=== PATIENT | female | born 1965 | race Caucasian/White ===

== ENCOUNTER → 2017-02-14 | Outpatient (CLI) | payer OTHER ==
[~2017-02-14] MED LIST: CALC500C3 PO; DIAZ-165 PO; HYDR-5688 PO; MEDR150I; TRAM-10 PO
--- NOTE | 2017-02-14 14:21 | DIAGNOSTIC IMAGING REPORT ---
LUMBAR SPINE 5 VIEWS HISTORY: BILATERAL LEG PAIN COMPARISON: None. FINDINGS: There is no fracture. No subluxation. Disc spaces are preserved for age. The sacrum is intact. IMPRESSION: No significant abnormality within the lumbar spine by conventional radiographic technique. Electronically signed by: Ajay Gordon M.D. 02/14/2017 2:20 PM Dictated Date/Time: 02/14/2017 2:14 PM
== END | disposition home or self-care (01) ==
LOC: C.RDSM 14:05
PROVIDERS: ATTEND Family Medicine
DX: M79.604 Pain in right leg (principal)

== ENCOUNTER → 2017-03-29 | Outpatient (CLI) | payer OTHER ==
--- NOTE | 2017-03-28 14:42 | DIAGNOSTIC IMAGING REPORT ---
LEFT ANKLE 3 VIEWS CLINICAL HISTORY: Left ankle pain. Tarsal tunnel syndrome. FINDINGS: 3 views of left ankle are obtained. No prior studies are available for comparison at the time of dictation. The skeletal structures appear osteopenic. No fracture is seen. The ankle mortise is intact. No joint effusion is identified. The overlying soft tissues are within normal limits. IMPRESSION: No acute bony abnormality is seen in the left ankle. Electronically signed by: Skyler Lacey M.D. 03/28/2017 2:41 PM Dictated Date/Time: 03/28/2017 2:40 PM
--- NOTE | 2017-03-28 14:43 | DIAGNOSTIC IMAGING REPORT ---
RIGHT ANKLE 3 VIEWS CLINICAL HISTORY: Right ankle pain. Tarsal tunnel syndrome. FINDINGS: 3 views of right ankle are obtained. No prior studies are available for comparison at the time of dictation. The skeletal structures appear osteopenic. No fracture is seen. The ankle mortise is intact. No joint effusion is identified. The overlying soft tissues are within normal limits. IMPRESSION: No acute bony abnormality is seen in the right ankle. Electronically signed by: Skyler Lacey M.D. 03/28/2017 2:42 PM Dictated Date/Time: 03/28/2017 2:41 PM
[~2017-03-29] MED LIST changes: -HYDR-5688 PO
== END | disposition home or self-care (01) ==
LOC: C.RDSM 13:15
PROVIDERS: ATTEND Family Medicine
DX: G57.53 Tarsal tunnel syndrome, bilateral lower limbs (principal)

== ENCOUNTER → 2017-08-26 | Day surgery (SDC) | payer OTHER ==
[2017-08-02 15:11] LABS: BASO % 0.3 %; BASO ABS # 0.02 K/uL (0-0.2); COMPLETE YES; EOS % 1.4 %; HEMATOCRIT 43.1 % (37-47); IG% 0.1 %; LYMPH % 32.6 %; LYMPH ABS # 2.48 K/uL (1.2-3.4); MEAN CELL VOLUME 89.4 fL (80-100); MEAN CORPUSCULAR HEMOGLOBIN 30.1 pg (25-34); MEAN CORPUSCULAR HGB CONC 33.6 g/dl (32-36); MEAN PLATELET VOLUME 8.5 fL (7.4-10.4); MONO % 6.3 %; NEUT % 59.3 %; PLATELET COUNT 246 K/uL (130-400); RED BLOOD COUNT 4.82 M/uL (4.2-5.4)
--- NOTE | 2017-08-02 15:19 | DIAGNOSTIC IMAGING REPORT ---
CHEST 2 VIEWS ROUTINE HISTORY: 52 years-old Female PRE-OP Z01.818 preoperative study. History of tobacco abuse. No acute pulmonary complaints. COMPARISON: Chest radiograph 10/05/2015 TECHNIQUE: Frontal and lateral views of the chest FINDINGS: Cardiomediastinal and hilar silhouettes are within normal limits. No pneumothorax, pleural effusion or focal airspace consolidation. There is mild blunting of the posterior costophrenic angles, unchanged suggesting atelectasis or scarring. Lungs are mildly hyperinflated. Bones are grossly intact. IMPRESSION: No acute cardiopulmonary process. The above report was generated using voice recognition software. It may contain grammatical, syntax or spelling errors. Electronically signed by: Santiago Mendez M.D. 08/02/2017 3:18 PM Dictated Date/Time: 08/02/2017 3:15 PM
[2017-08-02 15:28] LABS: BLOOD UREA NITROGEN 16 mg/dl (7-18); BUN/CREATININE RATIO 21.9 (10-20); CALCIUM 8.9 mg/dl (8.5-10.1); CARBON DIOXIDE 28 mmol/L (21-32); CHLORIDE 106 mmol/L (98-107); CREATININE 0.73 mg/dl (0.60-1.20); GLUCOSE 89 mg/dl (70-99); SODIUM 140 mmol/L (136-145)
[2017-08-25 11:10] VITALS: Ht 165.1 cm; Wt 52.3 kg
[~2017-08-26] VITALS: Ht 165.1 cm; Wt 52.3 kg
[~2017-08-26] MED LIST changes: +ATROPINE SULFATE 0.1 MG/ML 5ML SYR IV PRN; +BUPIVACAINE 0.5 % 5 MG/1 ML MPF 30ML VIAL ONE; +CLINDAMYCIN PHOS 150 MG/ML 2 ML VIAL IV SCH; +DEXAMETHASONE SOD INJ 4 MG/ML VIAL ONE; +EpHEDrine SULFATE INJ 50 MG/ML AMP IV PRN; +FENTANYL CITRATE INJ 50 MCG/1 ML 2 ML VIAL ONE; +FLUMAZENIL 0.1 MG/1 ML 10 ML VIAL IV PRN; +HYDROCODONE/ACETAMOPHEN 5/325MG TAB PO PRN; +KETOROLAC TROMETHAMINE 30 MG/ML VIAL ONE; +LABETALOL HCL IV 5 MG/ML 20ML IV PRN; +LACTATED RINGER'S 1000ML 1,000 ML IV SCH; +LIDOCAINE HCL 2% 2 ML VIAL (20MG/ML) ONE; +LIDOCAINE HCL 2% LOCAL 20 ML VIAL ONE; -MEDR150I; +MIDAZOLAM HCL 1 MG/ML 2ML VIAL ONE; +NALOXONE HCL 0.4 MG/1 ML VIAL/CARP IV PRN; +NURSING VERBAL MED ORDER ONE; +ONDANSETRON INJ 2 MG/ML 2 ML VIAL IV PRN; +PROMETHAZINE HCL INJ 12.5 MG in SODIUM CHLORIDE 0.9% 50ML 50 ML IV PRN; +PROPOFOL IV EMULSION 10 MG/ML 20 ML VIAL IV ONE; +SODIUM CHLORIDE 0.9% 1000ML 1,000 ML IV SCH
--- NOTE | 2017-08-26 06:43 | History & Physical Bridge Note ---
H&P Re-Evaluation Bridge Note: I have examined the patient, reviewed the History & Physical and in the interval since the performance of the History & Physical I have noted the following changes of clinical significance: consent obtained.No changes noted
--- NOTE | 2017-08-26 06:45 | Discharge Instructions ---
Discharge Instructions Date of Service Aug 26, 2017. Visit Reason for Visit: Right Foot Tarsal Tunnel Syndrome;Pre-Op Z01.818 Discharge Discharge Diagnosis / Problem: right tarsal tunnel syndrome Discharge Goals Goal(s): Decrease discomfort, Improve function Medications Stopped Medications Name(s): na Restart Stopped Medication(s): use all scripts as label directs Activity Recommendations Activity Limitations: as noted below Lifting Limitations: until after follow-up appointment Exercise/Sports Limitations: until after follow-up appointment May Resume Sexual Activity: when tolerated Shower/Bathe: keep incision dry Driving or Machine Use: Weightbearing Status: Right weightbearing (as tolerated) Anesthesia . Post Anesthesia Instructions: If you have had General Anesthesia or IV Sedation: * Do not drive today. * Resume driving when surgeon permits. * Do not make important decisions or sign legal documents today. * Call surgeon for: 1. Temperature elevations greater than 101 degrees F. 2. Uncontrollable pain. 3. Excessive bleeding. 4. Persistent nausea and vomiting. 5. Medication intolerance (nausea, vomiting or rash). * For nausea and vomiting use only clear liquids such as: tea, soda, bouillon until nausea subsides, then gradually increase diet as tolerated. * If you have any concerns or questions, call your surgeon's office. If physician is unavailable and it is an emergency, call 911 or go to the nearest emergency room. . Instructions / Follow-Up Instructions / Follow-Up DIET: * Resume previous diet. MEDICATIONS: * Please take your prescriptions as instructed at your pre-op appointment and/ or see medication discharge instructions listed above. * If concerns develop, call your physician's office at . SPECIAL CARE INSTRUCTIONS: * Ice/Elevate as instructed. * Keep dressing clean, dry, intact. * Your surgical extremity may be discolored due to prepping agents used on the skin. A bluish-green tint is a normal variant and should not cause alarm. Call your doctor at [phone] if: * Temperature above 101 degrees * Pain not relieved by pain medicine ordered * There is increased drainage or redness from any incision * You have any unanswered questions, problems or concerns. FOLLOW UP VISIT: * If not already scheduled, please call the office at to schedule a follow-up appointment. Diet Recommendations Recommended Home Diet: resume previous diet Procedures Procedures Performed: right tarsal tunnel release Pending Studies Studies pending at discharge: no Medical Emergencies . Who to Call and When: Medical Emergencies: If at any time you feel your situation is an emergency, please call 911 immediately. . Non-Emergent Contact Non-Emergency issues call your: Specialist Call Non-Emergent contact if: temperature is above 101.5, wound has increased drainage, wound has increased redness . . "Provider Documentation" section prepared by Dominik Bourne. .
--- NOTE | 2017-08-26 07:45 | [facility] Post Operative Brief Note ---
Immediate Operative Summary Operative Date Aug 26, 2017. Pre-Operative Diagnosis Right Foot Tarsal Tunnel Syndrome Post-Operative Diagnosis Same Procedure(s) Performed Right Foot Tarsal Tunnel Open Release Surgeon Dr. Bourne Adult Basic Education Teacher Surgeon(s) Dr. Kaylene Goetz; Sridhar Mcghee, Fellow Estimated Blood Loss Trace Findings no masses Fluids (cc crystalloids) 1000cc Specimens None Drains none Anesthesia LMA Complication(s) None Disposition Recovery Room / PACU
[2017-08-26] MEDS: HYDROmorphone INJ 1 MG/ML SYR IV PRN ×4 (08:21→08:57)
--- NOTE | 2017-08-26 08:21 | OPERATIVE REPORT ---
DATE OF OPERATION: 08/26/2017 PREOPERATIVE DIAGNOSIS: Right tarsal tunnel syndrome. POSTOPERATIVE DIAGNOSIS: Same. OPERATION PERFORMED: Right tarsal tunnel release. SURGEON: Dr. Bourne. WOVEN WOOD SHADE ASSEMBLER: Dr. Mcghee. SECOND WOVEN WOOD SHADE ASSEMBLER: Dr. Goetz. PERIOPERATIVE SITUATION: Medically cleared female with intractable discomfort and numbness in her foot who was advised that over the last 9 months or so that she be followed conservatively. This has not recovered; she wishes and requests to have surgical release even though this does not guarantee complete or all elimination of her symptoms. She understands this. This was discussed in detail with her and her spouse. Please see consent. OPERATION: The patient appropriately identified, site verified, consent verified clindamycin confirmed as being given. The right lower extremity was prepped and draped in usual routine fashion with a thigh tourniquet applied. Leg was exsanguinated and tourniquet inflated for approximately 18 minutes. Posterior incision made along the malleolus and extended proximal and distal midway between the Achilles tendon and the bone. Blunt dissection carried down to the fascia and the lancinate ligament. This was then opened and then the neurovascular pedicle identified and dissected from proximal to distal. We released a lot of the plantar fascia in Tom's area and totally decompressed the nerve. There was overlying vessels. Those that could be coagulated were and those that were main vessels were left alone. The wound was then irrigated. The nerve was quite mobile and we could see all branches distally, the calcaneal branch, etc. The wound was then irrigated, tourniquet deflated, no bleeding encountered. The wound was then closed with horizontal simple mattress nylon sutures, dressed appropriately and patient transferred to recovery room in satisfactory condition having tolerated the procedure well. ESTIMATED BLOOD LOSS: Trace. CRYSTALLOID: 1000 mL. I attest to the content of the Intraoperative Record and any orders documented therein. Any exception s are noted below.
[2017-08-26 09:31] VITALS: TEMP 36.4
[2017-08-26 09:57] VITALS: BP 97/66; PULSE 79; O2SAT 96
--- NOTE | 2017-08-26 10:01 | Anesthesia Progress Nt - [facility] ---
Anesthesia Post Op Note Date & Time Aug 26, 2017 at 10:01 Vital Signs Pain Intensity: 3 Vital Signs Past 12 Hours Date Time Temp Pulse Resp B/P (MAP) Pulse Ox O2 Delivery O2 Flow Rate FiO2 08/26/17 09:57 79 14 97/66 (76) 96 Room Air 08/26/17 09:31 36.4 69 16 120/68 (85) 95 Room Air 08/26/17 09:09 36.6 77 15 103/68 96 Room Air 08/26/17 09:07 75 16 08/26/17 09:07 74 16 93 08/26/17 09:06 115/73 08/26/17 09:02 71 22 94 08/26/17 09:02 71 22 08/26/17 09:01 117/72 08/26/17 08:57 74 13 97 08/26/17 08:57 76 13 08/26/17 08:56 114/74 08/26/17 08:52 70 13 100 08/26/17 08:52 71 13 08/26/17 08:51 115/71 08/26/17 08:47 67 13 99 08/26/17 08:47 67 13 08/26/17 08:46 108/75 08/26/17 08:42 65 20 08/26/17 08:42 64 20 100 08/26/17 08:41 114/72 08/26/17 08:37 70 17 08/26/17 08:37 71 17 99 08/26/17 08:36 110/70 08/26/17 08:32 71 18 100 08/26/17 08:32 71 18 08/26/17 08:31 114/73 08/26/17 08:27 70 9 08/26/17 08:27 69 9 100 08/26/17 08:26 112/73 08/26/17 08:22 70 12 100 08/26/17 08:22 70 12 08/26/17 08:21 113/74 08/26/17 08:17 69 20 08/26/17 08:17 68 20 100 08/26/17 08:16 110/66 08/26/17 08:12 66 12 100 08/26/17 08:12 67 12 08/26/17 08:11 106/69 08/26/17 08:07 73 15 08/26/17 08:07 73 15 100 08/26/17 08:06 110/65 08/26/17 08:02 66 15 08/26/17 08:02 65 15 100 08/26/17 08:01 102/61 08/26/17 07:57 67 8 100 08/26/17 07:57 66 8 08/26/17 07:56 97/58 08/26/17 07:52 67 17 08/26/17 07:52 66 17 100 08/26/17 07:51 99/59 08/26/17 07:48 105/65 08/26/17 07:47 65 08/26/17 07:47 36.6 66 10 105/65 100 6 08/26/17 07:47 84 100 08/26/17 06:29 36.8 90 18 115/59 (77) 96 Room Air Notes Mental Status: alert / awake / arousable, participated in evaluation Pt Amnestic to Procedure: Yes Nausea / Vomiting: adequately controlled Pain: adequately controlled Airway Patency, RR, SpO2: stable & adequate BP & HR: stable & adequate Hydration State: stable & adequate Anesthetic Complications: no major complications apparent
== END | disposition home or self-care (01) ==
LOC: X.SURG 06:17
PROVIDERS: ATTEND Physical Medicine & Rehabilitation Sports Medicine
DX: G57.51 Tarsal tunnel syndrome, right lower limb (principal); F17.210 Nicotine dependence, cigarettes, uncomplicated; F41.9 Anxiety disorder, unspecified; F32.9 Major depressive disorder, single episode, unspecified; Z79.899 Other long term (current) drug therapy

== ENCOUNTER → 2017-09-25 | Day surgery (SDC) | payer OTHER ==
[2017-08-25 11:16] VITALS: Ht 165.1 cm; Wt 52.3 kg
[~2017-09-25] VITALS: Ht 165.1 cm; Wt 52.3 kg
[~2017-09-25] MED LIST changes: -ATROPINE SULFATE 0.1 MG/ML 5ML SYR IV PRN; -BUPIVACAINE 0.5 % 5 MG/1 ML MPF 30ML VIAL ONE; -CLINDAMYCIN PHOS 150 MG/ML 2 ML VIAL IV SCH; -DEXAMETHASONE SOD INJ 4 MG/ML VIAL ONE; -EpHEDrine SULFATE INJ 50 MG/ML AMP IV PRN; -FENTANYL CITRATE INJ 50 MCG/1 ML 2 ML VIAL ONE; -FLUMAZENIL 0.1 MG/1 ML 10 ML VIAL IV PRN; -HYDROCODONE/ACETAMOPHEN 5/325MG TAB PO PRN; -KETOROLAC TROMETHAMINE 30 MG/ML VIAL ONE; -LABETALOL HCL IV 5 MG/ML 20ML IV PRN; -LACTATED RINGER'S 1000ML 1,000 ML IV SCH; -LIDOCAINE HCL 2% LOCAL 20 ML VIAL ONE; -MIDAZOLAM HCL 1 MG/ML 2ML VIAL ONE; -NALOXONE HCL 0.4 MG/1 ML VIAL/CARP IV PRN; -NURSING VERBAL MED ORDER ONE; -ONDANSETRON INJ 2 MG/ML 2 ML VIAL IV PRN; -PROMETHAZINE HCL INJ 12.5 MG in SODIUM CHLORIDE 0.9% 50ML 50 ML IV PRN; -SODIUM CHLORIDE 0.9% 1000ML 1,000 ML IV SCH; -TRAM-10 PO
--- NOTE | 2017-09-25 12:41 | Endo History and Physical ---
History & Physical Date of Service: Sep 25, 2017. Chief Complaint: Screening Referring Physician: Dr Stover History of Present Illness 52 yo CF who presents for screening colonoscopy. Past Surgical History Hx Cardiac Surgery: No Hx Internal Defibrillator: No Hx Pacemaker: No Hx Abdominal Surgery: No Hx of Implantable Prosthesis: No Hx Post-Op Nausea and Vomiting: No Hx Cancer Surgery: No Hx Thoracic Surgery: No Hx Orthopedic: Yes (RIGHT TARSAL TUNNEL 08/26) Hx Urinary Tract Surgery: No Family History None Social History Smoking Status: Current Every Day Smoker Hx Substance Use: No Hx Alcohol Use: No Allergies Coded Allergies: Amoxicillin (Verified Allergy, Severe, throat closes, 09/25/17) Lidocaine (Verified Allergy, Intermediate, HIVES, 09/25/17) Current Medications Reported Home Medications Medications Dose Route/Sig Max Daily Dose Days Date Category Valium (Diazepam) 5 Mg Tab 5 Mg PO HS PRN 08/25/17 Reported Tums (Calcium Carbonate) 500 Mg Chew 1 Tab PO BID 08/25/17 Reported Vital Signs Weight (Kilograms): 52.27 Height (Feet): 5 Height (Inches): 5 Date Time Temp Pulse Resp B/P (MAP) Pulse Ox O2 Delivery O2 Flow Rate FiO2 09/25/17 12:13 36.9 93 20 106/65 (79) 93 Room Air Physical Exam General Appearance: WD/WN, no apparent distress Respiratory/Chest: Auscultation: breath sounds normal Cardiovascular: Heart Auscultation: RRR Abdomen: Bowel Sounds: normal Inspection & Palpation: soft, non-distended, no tenderness, guarding & rebound Assessment and Plan Assessment: 52 yo CF who presents for screening colonoscopy. Plan: Proceed with colonoscopy.
--- NOTE | 2017-09-25 13:06 | Discharge Instructions ---
Endoscopy Patient Instructions Date / Procedure(s) Performed Sep 25, 2017. Colonoscopy Allergy Information Coded Allergies: Amoxicillin (Verified Allergy, Severe, throat closes, 09/25/17) Lidocaine (Verified Allergy, Intermediate, HIVES, 09/25/17) Discharge Date / Findings Sep 25, 2017. Diverticulosis Internal hemorrhoids Medication Instructions OK to resume all medications today as prescribed Provider Instructions Activity Restrictions - No exercising or heavy lifting for 24 hours. - Do not drink alcohol the day of the procedure. - Do not drive a car or operate machinery until the day after the procedure. - Do not make any important decisions or sign important papers in 24 hours after the procedure. Following Day: - Return to full activity which may include returning to work/school. Diet Start your diet with liquids and light foods (jello, soup, juice, toast). Then eat your usual diet if not nauseated. Treatment For Common After Affects For mild abdominal pain, bloating, or excessive gas: - Rest - Eat lightly - Lie on right side Follow-Up Information Follow-up with Dr Stover as scheduled Anesthesia Information What You Should Know You have had a procedure that required some medicine to reduce anxiety and discomfort. This treatment is called moderate sedation. After receiving the treatment, you may be sleepy, but you will be able to breathe on your own. The effects of the treatment may last for several hours. Follow these instructions along with Activity/Diet recommendations noted above: * Do NOT do anything where dizziness or clumsiness would be dangerous. * Rest quietly at home today, then you can be up and about tomorrow. * Have a responsible person stay with you the rest of today. * You may have had an I.V. today. If so, you may take the dressing off later today. Recommendations Call your doctor if: * Trouble breathing * Continuous vomiting for more than 24 hours * Temperature above 101 degrees * Severe abdominal pain or bloating * Pain not relieved by pain medicine ordered * There is increased drainage or redness from any incision * A large amount of rectal bleeding greater than 2-3 tablespoons. (If you had a polyp/s removed or have hemorrhoids, a small amount of blood - from the rectum is to be expected.) * You have any unanswered questions or concerns. IN THE EVENT OF A SERIOUS EMERGENCY, GO TO THE NEAREST EMERGENCY ROOM Your discharge instructions were prepared by provider Scar G. Case. Patient Instructions Signature Page Karrie Jamarcus Patient (or Guardian) Signature/Date: I have read and understand the instructions given to me by my caregivers. Caregiver/RN/Doctor Signature/Date: The above-named patient and/or guardian has received patient instructions on this date. + Original Patient Signature Page (only) stays with chart. Please make copy for patient.
--- NOTE | 2017-09-25 13:11 | GI REPORT ---
Procedure Date: 09/25/2017 12:36 PM Procedure: Colonoscopy Indications: Screening for colorectal malignant neoplasm Medicines: Monitored Anesthesia Care Complications: No immediate complications. Estimated Blood Loss: Estimated blood loss: none. Procedure: Pre-Anesthesia Assessment: - Prior to the procedure, a History and Physical was performed, and patient medications and allergies were reviewed. The patient's tolerance of previous anesthesia was also reviewed. The risks and benefits of the procedure and the sedation options and risks were discussed with the patient. All questions were answered, and informed consent was obtained. Prior Anticoagulants: The patient has taken no previous anticoagulant or antiplatelet agents. ASA Grade Assessment: II - A patient with mild systemic disease. After reviewing the risks and benefits, the patient was deemed in satisfactory condition to undergo the procedure. After I obtained informed consent, the scope was passed under direct vision. Throughout the procedure, the patient's blood pressure, pulse, and oxygen saturations were monitored continuously. The Scope was introduced through the anus and advanced to the terminal ileum. The colonoscopy was performed without difficulty. The patient tolerated the procedure well. The quality of the bowel preparation was good. The terminal ileum, ileocecal valve, appendiceal orifice, and rectum were photographed. Findings: Multiple small-mouthed diverticula were found in the sigmoid colon. Non-bleeding internal hemorrhoids were found during retroflexion. The hemorrhoids were small. Impression: - Diverticulosis in the sigmoid colon. - Non-bleeding internal hemorrhoids. - No specimens collected. Recommendation: - Resume previous diet. - Continue present medications. - Repeat colonoscopy in 10 years for surveillance. - Return to primary care physician as previously scheduled. Scar Fernandez, 09/25/2017 1:10:54 PM This report has been signed electronically. Note Initiated On: 09/25/2017 12:36 PM I attest to the content of the Intraoperative Record and orders documented therein, exceptions below
[2017-09-25 13:39] VITALS: BP 92/69; PULSE 84; O2SAT 95
--- NOTE | 2017-09-25 14:02 | Anesthesiology Progress Note ---
Anesthesia Post Op Note Date & Time Sep 25, 2017 at 14:02 Vital Signs Pain Intensity: 0 Vital Signs Past 12 Hours Date Time Temp Pulse Resp B/P (MAP) Pulse Ox O2 Delivery O2 Flow Rate FiO2 09/25/17 13:39 84 16 92/69 (77) 95 Room Air 09/25/17 13:24 84 16 118/55 (76) 97 Room Air 09/25/17 13:09 92 16 95/56 (69) 97 Room Air 09/25/17 12:13 36.9 93 20 106/65 (79) 93 Room Air Notes Mental Status: alert / awake / arousable, participated in evaluation Pt Amnestic to Procedure: Yes Nausea / Vomiting: adequately controlled Pain: adequately controlled Airway Patency, RR, SpO2: stable & adequate BP & HR: stable & adequate Hydration State: stable & adequate Anesthetic Complications: no major complications apparent
== END | disposition home or self-care (01) ==
LOC: C.GI 11:49
PROVIDERS: ATTEND Internal Medicine
DX: Z12.11 Encounter for screening for malignant neoplasm of colon (principal); K57.30 Diverticulosis of large intestine without perforation or abscess without bleeding; K64.8 Other hemorrhoids; F17.200 Nicotine dependence, unspecified, uncomplicated

== ENCOUNTER → 2017-11-10 | Outpatient (CLI) | payer OTHER ==
[~2017-11-10] MED LIST changes: -LIDOCAINE HCL 2% 2 ML VIAL (20MG/ML) ONE; -PROPOFOL IV EMULSION 10 MG/ML 20 ML VIAL IV ONE
[2017-11-10 16:07] LABS: HEMATOCRIT 41.9 % (37-47); MEAN CELL VOLUME 90.7 fL (80-100); MEAN CORPUSCULAR HEMOGLOBIN 31.4 pg (25-34); MEAN CORPUSCULAR HGB CONC 34.6 g/dl (32-36); MEAN PLATELET VOLUME 8.8 fL (7.4-10.4); PLATELET COUNT 270 K/uL (130-400); RED BLOOD COUNT 4.62 M/uL (4.2-5.4); WHITE BLOOD COUNT 7.91 K/uL (4.8-10.8)
== END | disposition home or self-care (01) ==
LOC: C.LAB1850 15:17
PROVIDERS: ATTEND Physician Assistant
DX: N92.0 Excessive and frequent menstruation with regular cycle (principal)

== ENCOUNTER → 2018-01-05 | Outpatient (CLI) | payer OTHER | END | disposition home or self-care (01) | LOC: C.PAPS 09:37 | PROVIDERS: ATTEND Obstetrics & Gynecology | DX: G57.53 Tarsal tunnel syndrome, bilateral lower limbs (principal); Z01.419 Encounter for gynecological examination (general) (routine) without abnormal findings ==

== ENCOUNTER 2018-02-04 11:22 | Emergency (ER) | payer OTHER ==
[~2018-02-04] VITALS: Ht 165.1 cm; Wt 51.0 kg
[2018-02-04 11:25] VITALS: Ht 165.1 cm; Wt 51.0 kg
--- NOTE | 2018-02-04 12:15 | EMERGENCY ROOM VISIT NOTE ---
History Report prepared by Irma: Suraj Nuñez Under the Supervision of: Dr. Sarabjit Mancia M.D. First contact with patient: 11:52 Chief Complaint: FLU LIKE SX Stated Complaint: COLD-FLU SYMPS -CHEST HURTS & CAN'T BREATH VERY History of Present Illness The patient is a 52 year old white female with a past medical history of gastroenteritis and anxiety who presents to the ED with a cc of worsening flu- like symptoms beginning 4 days ago. Positive fever, weakness, sore throat, headache, chest pain, shortness of breath, dry cough, ear pain, back pain, generalized achiness, loose stools. Negative urinary symptoms. She states that she works here at [employer]. The patient notes that she was given a Z-pack by her family doctor, but her symptoms worsened after that. She notes that she has gotten loose stools from that as well. The patient says she last smoked cigarettes last night. She notes no history of blood clots in her legs or lungs. She denies any recent long travels. Source of History: patient Onset: 4 days ago Position: other (global) Quality: other (flu-like symptoms) Timing: worsening Associated Symptoms: + fevers, + cough, + chest pain, + SOB, + back pain, + diarrhea (loose stools), + weakness, No urinary symptoms Note: Positive ear pain, achiness. Review of Systems See HPI for pertinent positives and negatives. A total of ten systems were reviewed and were otherwise negative. Past Medical & Surgical Medical Problems: (1) Acute gastroenteritis (2) Allergic reaction (3) Anxiety (4) Back pain (5) Cough (6) Dental caries (7) Hypotension (8) Laceration of left little finger w/o foreign body w/o damage to nail (9) Laceration of left little finger without foreign body without damage to nail (10) Pain, dental (11) Rib pain on left side (12) Tooth pain with chewing (13) Vasovagal near syncope (14) Vasovagal near-syncope Family History Heart disease Hypertension Kidney disease Kidney stones Social History Smoking Status: Current Every Day Smoker Alcohol Use: none Drug Use: none Marital Status: Housing Status: lives with family Occupation Status: employed Current/Historical Medications Scheduled Duloxetine HCl (Cymbalta), 30 MG PO DAILY Tramadol HCl (Tramadol HCl), 50 MG PO QID Scheduled PRN Diazepam (Valium), 5 MG PO HS PRN for PRN Allergies Coded Allergies: Amoxicillin (Verified Allergy, Severe, throat closes, 09/25/17) Lidocaine (Verified Allergy, Intermediate, HIVES, 09/25/17) Physical Exam Vital Signs Date Time Temp Pulse Resp B/P (MAP) Pulse Ox O2 Delivery O2 Flow Rate FiO2 02/04/18 14:00 92 Nasal Cannula 2.0 02/04/18 13:57 38.6 88 18 114/70 89 Room Air 02/04/18 12:54 37.8 96 18 114/68 93 Room Air 02/04/18 12:46 90 02/04/18 12:39 100 02/04/18 11:25 37.1 111 18 114/77 93 Room Air Physical Exam GENERAL: Awake, alert, well-appearing, NAD HENT: Normocephalic, atraumatic. EYES: Normal conjunctiva. Sclera non-icteric. NECK: Supple. No nuchal rigidity. FROM. RESPIRATORY: CTAB, no rhonchi, wheezing, crackles CARDIAC: Tachy, irregular, no MRG ABDOMEN: Soft, NTND, BS+ MSK: No chest wall TTP, no LE edema NEURO: GCS 15, CN 2-12 intact, moves all 4s on command SKIN: No rash or jaundice noted. Medical Decision & Procedures ER Provider Diagnostic Interpretation: X-ray: Per my interpretation, radiologist review. CHEST ONE VIEW PORTABLE CLINICAL HISTORY: Evaluate Fever/Sepsis sepsis COMPARISON STUDY: 08/02/2017 FINDINGS: Mild chronic interstitial change at both lung bases. Mid and upper lungs are entirely clear. No significant cardiac enlargement. IMPRESSION: Chronic change. No acute process. The above report was generated using voice recognition software. It may contain grammatical, syntax or spelling errors. Electronically signed by: Manolo Lo M.D. 02/04/2018 12:48 PM Dictated Date/Time: 02/04/2018 12:47 PM Laboratory Results 02/04/18 12:35 Red Blood Count 5.08, Mean Corpuscular Volume 87.2, Mean Corpuscular Hemoglobin 30.9, Mean Corpuscular Hemoglobin Concent 35.4, Mean Platelet Volume 8.3, Neutrophils (%) (Auto) 77.8, Lymphocytes (%) (Auto) 12.6, Monocytes (%) (Auto) 8.6, Eosinophils (%) (Auto) 0.4, Basophils (%) (Auto) 0.4, Neutrophils # (Auto) 3.96, Lymphocytes # (Auto) 0.64, Monocytes # (Auto) 0.44, Eosinophils # (Auto) 0.02, Basophils # (Auto) 0.02 02/04/18 12:35 Test 02/04/18 12:30 02/04/18 12:35 02/04/18 14:27 Influenza Type A Antigen POS for Influ A (NEG) Influenza Type B Antigen Neg for Influ B (NEG) White Blood Count 5.09 K/uL (4.8-10.8) Red Blood Count 5.08 M/uL (4.2-5.4) Hemoglobin 15.7 g/dL (12.0-16.0) Hematocrit 44.3 % (37-47) Mean Corpuscular Volume 87.2 fL (80-100) Mean Corpuscular Hemoglobin 30.9 pg (25-34) Mean Corpuscular Hemoglobin Concent 35.4 g/dl (32-36) Platelet Count 168 K/uL (130-400) Mean Platelet Volume 8.3 fL (7.4-10.4) Neutrophils (%) (Auto) 77.8 % Lymphocytes (%) (Auto) 12.6 % Monocytes (%) (Auto) 8.6 % Eosinophils (%) (Auto) 0.4 % Basophils (%) (Auto) 0.4 % Neutrophils # (Auto) 3.96 K/uL (1.4-6.5) Lymphocytes # (Auto) 0.64 K/uL (1.2-3.4) Monocytes # (Auto) 0.44 K/uL (0.11-0.59) Eosinophils # (Auto) 0.02 K/uL (0-0.5) Basophils # (Auto) 0.02 K/uL (0-0.2) RDW Standard Deviation 45.5 fL (36.4-46.3) RDW Coefficient of Variation 14.3 % (11.5-14.5) Immature Granulocyte % (Auto) 0.2 % Immature Granulocyte # (Auto) 0.01 K/uL (0.00-0.02) Prothrombin Time 9.7 SECONDS (9.0-12.0) Prothromb Time International Ratio 0.9 (0.9-1.1) Activated Partial Thromboplast Time 29.3 SECONDS (21.0-31.0) Partial Thromboplastin Ratio 1.1 Anion Gap 6.0 mmol/L (3-11) Est Creatinine Clear Calc Drug Dose 75.3 ml/min Estimated GFR () 113.2 Estimated GFR (Non- 97.7 BUN/Creatinine Ratio 10.2 (10-20) Calcium Level 8.8 mg/dl (8.5-10.1) Total Bilirubin 0.3 mg/dl (0.2-1) Direct Bilirubin < 0.1 mg/dl (0-0.2) Aspartate Amino Transf (AST/SGOT) 18 U/L (15-37) Alanine Aminotransferase (ALT/SGPT) 19 U/L (12-78) Alkaline Phosphatase 59 U/L (45-117) Troponin I < 0.015 ng/ml (0-0.045) Total Protein 6.8 gm/dl (6.4-8.2) Albumin 3.6 gm/dl (3.4-5.0) Lipase 113 U/L (73-393) Urine Color YELLOW Urine Appearance CLEAR (CLEAR) Urine pH 5.0 (4.5-7.5) Urine Specific [place] 1.011 (1.000-1.030) Urine Protein NEG (NEG) Urine Glucose (UA) NEG (NEG) Urine Ketones 2+ (NEG) Urine Occult Blood TRACE (NEG) Urine Nitrite NEG (NEG) Urine Bilirubin NEG (NEG) Urine Urobilinogen NEG (NEG) Urine Leukocyte Esterase NEG (NEG) Urine WBC (Auto) 1-5 /hpf (0-5) Urine RBC (Auto) 0-4 /hpf (0-4) Urine Hyaline Casts (Auto) 0 /lpf (0-5) Urine Epithelial Cells (Auto) 10-20 /lpf (0-5) Urine Bacteria (Auto) NEG (NEG) Laboratory results reviewed by me Medications Administered Medications (Trade) Dose Ordered Sig/Gerard Route Start Time Stop Time Status Last Admin Dose Admin Acetaminophen (Tylenol Tab) 1,000 mg NOW STAT PO 02/04/18 12:23 02/04/18 12:25 DC 02/04/18 12:29 1,000 MG Albuterol/ Ipratropium (Duoneb) 3 ml NOW STAT INH 02/04/18 12:23 02/04/18 12:25 DC 02/04/18 12:30 3 ML Ketorolac Tromethamine (Toradol Inj) 30 mg NOW STAT IV 02/04/18 12:23 02/04/18 12:25 DC 02/04/18 12:30 30 MG Sodium Chloride 1,000 ml @ 999 mls/hr Q1H1M STAT IV 02/04/18 12:23 02/04/18 13:23 DC 02/04/18 12:30 999 MLS/HR Tramadol HCl (Ultram Tab) 50 mg NOW STAT PO 02/04/18 14:09 02/04/18 14:10 DC 02/04/18 14:33 50 MG ECG Per My Interpretation Indication: chest pain Rate (beats per minute): 91 Rhythm: normal sinus Findings: other (normal intervals, normal axis, no sts changes or twi) ED Course 1208: The patient was evaluated in room A3. A complete history and physical exam was performed. 1337: I reevaluated and updated the patient. 1447: I reevaluated the patient and she is resting. We are obtaining a follow- up appointment for her. Discussed results and discharge instructions: she verbalized understanding and agreement. The patient is ready for discharge. Medical Decision The patient is a 52 year old white female with a past medical history of gastroenteritis and anxiety who presents to the ED with a cc of worsening flu- like symptoms beginning 4 days ago. Positive fever, weakness, sore throat, headache, chest pain, shortness of breath, dry cough, ear pain, back pain, generalized achiness, loose stools. Negative urinary symptoms Differential diagnosis: Etiologies such as viral syndrome, otitis, pharyngitis, pneumonia, influenza, meningitis, urinary tract infection, sepsis, bacteremia, as well as others were entertained. Patient was seen and evaluated the bedside. Patient was complaining some flulike symptoms beginning 4 days prior. Patient had been started on azithromycin but did notice some increasing runny stool. Patient does complain of chest pain shortness of breath body aches fevers and chills. Patient is not taking very much in terms of balz-ahk-hklortm medications for symptomatic control at home. The patient did have blood work completed, EKG, troponin, chest x-ray. Patient also did a flu swab. Patient's chest x-ray was negative for any acute change. Less likely pneumonia. The patient may have an element of bronchitis as the patient does smoke. Patient was counseled on smoking cessation. The patient's blood work was also fairly unremarkable. Patient had normal electrolytes, kidney function, white blood cell count. Patient did have a positive flu swab. Patient also did have a urinalysis sent as the patient was complaining some low back discomfort. The patient had no saddle anesthesia or lower extremity deficits. Less likely cauda equina. I believe that all of her symptoms are manifestations of her flulike illness which is further likely consider the positive flu swab. Patient was told of these findings. Patient was told to continue tvmo-kxf-gytncxo type treatments at home. Patient was told that she is outside the window of treatment with Tamiflu given the duration of her symptoms. Patient was given strict follow-up, discharge, and return precautions. All questions were answered. Patient was deemed suitable for outpatient follow-up at this time. Patient agreed with the plan of care and was safely discharged home. Medication Reconcilliation Current Medication List: was personally reviewed by me Blood Pressure Screening Patient's blood pressure: Normal blood pressure Impression Primary Impression: Influenza A Additional Impression: Encounter for smoking cessation counseling Scribe Attestation The scribe's documentation has been prepared under my direction and personally reviewed by me in its entirety. I confirm that the note above accurately reflects all work, treatment, procedures, and medical decision making performed by me. Departure Information Dispostion Home / Self-Care Referrals Bernard Stover M.D. (PCP) Patient Instructions ED Flu, My [facility] Additional Instructions Please return to the emergency department if you have worsening or recurrent symptoms not amenable to at-home treatment. Please call for a follow-up appointment with her primary care physician. Please take your medications as prescribed. If you have other concerns and/or complaints please feel free to also call your primary care physician's office or return the ED for further evaluation, management, and treatment. You were found to have an elevated blood pressure today (>120 sytolic or >90 diastolic). Per medicare guidelines, you need to follow up with this blood pressure screening with your Primary Care Physician (PCP). For a new PCP call [phone]. Please consider smoking cessation. You may take 600 mg Ibuprofen every 6 hours as needed for pain with food for no more than 2 consecutive days. You may take tylenol 1000 mg every 6 hours as needed for pain. You may take motrin and tylenol separately or at the same time. You may take additional yigy-jte-tnjrrfe type medications to help with cough suppressant, expectorants, headache, and body aches. Take your medications as prescribed. You have been examined and treated today on an emergency basis only. This is not a substitute for, or an effort to provide, complete comprehensive medical care. It is impossible to recognize and treat all injuries or illnesses in a single emergency department visit. It is therefore important that you follow up closely with [facility], your PCP, and/or your specialist(s). Call as soon as possible for an appointment. Thank you for your time and consideration. I look forward to speaking with you again soon. Please don't hesitate to call us if you have any questions. Problem Qualifiers
[2018-02-04] MEDS ORDERED: ACETAMINOPHEN 500 MG TAB PO STA (12:23)
[2018-02-04] MEDS ORDERED: KETOROLAC TROMETHAMINE 30 MG/ML VIAL IV STA (12:23)
[2018-02-04] MEDS ORDERED: SODIUM CHLORIDE 0.9% 1000ML 1,000 ML IV STA (12:23)
[2018-02-04] MEDS ORDERED: ALBUT/IPRATROP 3MG/0.5MG NEB 3 ML VIAL INH STA (12:23)
[2018-02-04 12:39] VITALS: O2SAT 100
[2018-02-04 12:45] LABS: BASO % 0.4 %; BASO ABS # 0.02 K/uL (0-0.2); EOS % 0.4 %; EOS ABS # 0.02 K/uL (0-0.5); HEMATOCRIT 44.3 % (37-47); HEMOGLOBIN 15.7 g/dL (12.0-16.0); IG# 0.01 K/uL (0.00-0.02); LYMPH % 12.6 %; LYMPH ABS # 0.64 K/uL (1.2-3.4); MEAN CELL VOLUME 87.2 fL (80-100); MEAN CORPUSCULAR HEMOGLOBIN 30.9 pg (25-34); MEAN CORPUSCULAR HGB CONC 35.4 g/dl (32-36); MEAN PLATELET VOLUME 8.3 fL (7.4-10.4); MONO % 8.6 %; MONO ABS # 0.44 K/uL (0.11-0.59); NEUT % 77.8 %; NEUT ABS # 3.96 K/uL (1.4-6.5); PLATELET COUNT 168 K/uL (130-400); RED CELL DISTRIBUTION WIDTH CV 14.3 % (11.5-14.5); RED CELL DISTRIBUTION WIDTH SD 45.5 fL (36.4-46.3); WHITE BLOOD COUNT 5.09 K/uL (4.8-10.8)
--- NOTE | 2018-02-04 12:49 | DIAGNOSTIC IMAGING REPORT ---
CHEST ONE VIEW PORTABLE CLINICAL HISTORY: Evaluate Fever/Sepsis sepsis COMPARISON STUDY: 08/02/2017 FINDINGS: Mild chronic interstitial change at both lung bases. Mid and upper lungs are entirely clear. No significant cardiac enlargement. IMPRESSION: Chronic change. No acute process. The above report was generated using voice recognition software. It may contain grammatical, syntax or spelling errors. Electronically signed by: Manolo Lo M.D. 02/04/2018 12:48 PM Dictated Date/Time: 02/04/2018 12:47 PM
[2018-02-04 12:54] LABS: INR 0.9 (0.9-1.1); PTT PATIENT 29.3 SECONDS (21.0-31.0)
[2018-02-04 13:02] LABS: ALBUMIN 3.6 gm/dl (3.4-5.0); ALT/SGPT 19 U/L (12-78); BLOOD UREA NITROGEN 7 mg/dl (7-18); CALCIUM 8.8 mg/dl (8.5-10.1); CARBON DIOXIDE 25 mmol/L (21-32); CREATININE 0.72 mg/dl (0.60-1.20); GLUCOSE 88 mg/dl (70-99); LIPASE 113 U/L (73-393); POTASSIUM 3.9 mmol/L (3.5-5.1); SODIUM 139 mmol/L (136-145)
[2018-02-04 13:07] LABS: ALKALINE PHOSPHATASE 59 U/L (45-117); AST/SGOT 18 U/L (15-37); TOTAL PROTEIN 6.8 gm/dl (6.4-8.2)
[2018-02-04 13:07] LABS: INFLUENZA B ANTIGEN Neg for Influ B (NEG)
[2018-02-04] MEDS ORDERED: TRAMADOL HCL 50 MG TAB PO STA (14:09)
[2018-02-04 15:28] VITALS: BP 118/76; PULSE 83; TEMP 37.4; O2SAT 91
[2018-02-06] MEDS ORDERED: ULT50 PO (11:33)
[2018-02-06] MEDS ORDERED: CYM/30 PO (11:33)
== END 2018-02-04 15:43 | disposition home or self-care (01) ==
LOC: C.EDB 11:23 → C.EDA 15:43
DX: J10.1 Influenza due to other identified influenza virus with other respiratory manifestations (principal); Z71.6 Tobacco abuse counseling; F41.9 Anxiety disorder, unspecified; I95.9 Hypotension, unspecified; Z82.49 Family history of ischemic heart disease and other diseases of the circulatory system; Z84.1 Family history of disorders of kidney and ureter; F17.210 Nicotine dependence, cigarettes, uncomplicated; Z79.899 Other long term (current) drug therapy; Z88.1 Allergy status to other antibiotic agents; Z88.8 Allergy status to other drugs, medicaments and biological substances

== ENCOUNTER → 2018-02-05 | Outpatient (CLI) | payer OTHER ==
[~2018-02-05] MED LIST changes: -CALC500C3 PO; +CYM/30 PO; +DIAZ5TAB PO; +HYDR5SYP11 PO; +PRED50TA PO; +ULT50 PO
--- NOTE | 2018-02-05 20:13 | DIAGNOSTIC IMAGING REPORT ---
CHEST 2 VIEWS ROUTINE HISTORY: 52 years-old Female R50.9 [id number] Shortness of breath acute cough COMPARISON: Chest radiograph 02/04/2018 TECHNIQUE: PA and lateral views of the chest FINDINGS: Cardiomediastinal and hilar silhouettes are within normal limits. Lungs are mildly hyperinflated without pneumothorax, pleural effusion, focal airspace consolidation or overt pulmonary edema. The bones of the chest appear grossly intact. IMPRESSION: Mild hyperinflation without acute process. The above report was generated using voice recognition software. It may contain grammatical, syntax or spelling errors. Electronically signed by: Santiago Mendez M.D. 02/05/2018 8:11 PM Dictated Date/Time: 02/05/2018 8:09 PM
== END | disposition home or self-care (01) ==
LOC: C.RAD 19:51
PROVIDERS: ATTEND Internal Medicine
DX: R50.9 Fever, unspecified (principal); R06.02 Shortness of breath; R05 Cough

== ENCOUNTER 2018-02-06 20:18 | Emergency (ER) | payer OTHER ==
[~2018-02-06] VITALS: Ht 165.1 cm; Wt 50.8 kg
[~2018-02-06 20:18] MED LIST changes: -DIAZ5TAB PO; -HYDR5SYP11 PO; -PRED50TA PO
[2018-02-06 20:20] VITALS: TEMP 36.9; Ht 165.1 cm; Wt 50.8 kg
[2018-02-06] MEDS ORDERED: DIAZ5TAB PO (20:54)
[2018-02-06] MEDS ORDERED: ALBUT/IPRATROP 3MG/0.5MG NEB 3 ML VIAL INH STA (20:56)
[2018-02-06] MEDS ORDERED: HYCODAN 60ML BOTTLE HOMEPACK PO ONE (21:00)
[2018-02-06] MEDS ORDERED: PRED50TA PO (21:49)
[2018-02-06] MEDS ORDERED: HYDR5SYP11 PO (21:50)
--- NOTE | 2018-02-06 21:50 | EMERGENCY ROOM VISIT NOTE ---
History First contact with patient: 20:24 Chief Complaint: OTHER COMPLAINT Stated Complaint: I HAVE THE FLU,WAS IN ON WED POSSIBLE C DIFF History of Present Illness Patient is a 52-year-old female who returns to the emergency department for evaluation of influenza-like symptoms with associated diarrhea. She has been sick for 6 days. She was seen and thoroughly evaluated here just 2 days ago and diagnosed with influenza. Patient had subsequent follow-up with her primary care provider, had a chest x-ray which was negative, and because of her diarrhea had a stool study for C. difficile. She presents here to the emergency department for the results of her C. difficile testing as she states that she was not able to get them over the phone by her doctor's office. Patient continues to express frustration that she is not feeling better. She states she has been trying to eat a bland, liquid diet, but everything goes right through her. She has not been vomiting. She continues to note a cough. Patient states that she still feels feverish but does not have a thermometer at home to check her temperature. She has been taking Tylenol since she left here. She has an albuterol inhaler, but she states that it is not working. She was prescribed a Z-Donald at the beginning of the week for her illness but only took about 2 days worth because of the diarrhea. She does not have any pain. Her C. difficile study was negative. Review of Systems Review of systems as per HPI. All other systems reviewed were negative. 10 systems reviewed. Past Medical/Surgical History Medical Problems: (1) Acute gastroenteritis (2) Acute gastroenteritis (3) Allergic reaction (4) Anxiety (5) Back pain (6) Cold (7) Cough (8) Dental caries (9) Encounter for smoking cessation counseling (10) Hypotension (11) Influenza A (12) Laceration of left little finger w/o foreign body w/o damage to nail (13) Laceration of left little finger without foreign body without damage to nail (14) Pain, dental (15) Pain, dental (16) Rib pain on left side (17) Tobacco Use Disorder (18) Tooth pain with chewing (19) Vasovagal near syncope (20) Vasovagal near-syncope Electronic medical records are reviewed and summarized as above/below. See Problem List. Family History Heart disease Hypertension Kidney disease Kidney stones Social History Smoking Status: Current Every Day Smoker Alcohol Use: none Drug Use: none Marital Status: Housing Status: lives with family Occupation Status: employed Current/Historical Medications Scheduled Duloxetine HCl (Cymbalta), 30 MG PO DAILY Prednisone (Prednisone), 50 MG PO DAILY Tramadol HCl (Tramadol HCl), 50 MG PO QID Scheduled PRN Diazepam (Valium), 5 MG PO BID PRN for Anxiety Hydrocodone W/ Homatropine (Hycodan 5/1.5MG 5 Ml), 10 ML PO Q4H PRN for Cough Physical Exam Vital Signs Date Time Temp Pulse Resp B/P (MAP) Pulse Ox O2 Delivery O2 Flow Rate FiO2 02/06/18 22:15 84 113/81 92 02/06/18 20:20 36.9 88 18 133/71 94 Room Air Physical Exam CONSTITUTIONAL: Patient is a well-appearing 52-year-old white female who is awake and alert and in no acute distress. Vital signs are stable. EYES: Pupils equal, round, reactive to light and accommodation. EOMs intact without nystagmus. Sclera are anicteric. ENT: Tympanic membranes intact, with normal landmarks. External canals are clear. Oral and nasopharynx are clear. Mucous membranes are moist, no lesions , tongue and gums appear normal. , With inspiratory and expiratory wheezes noted throughout. CARDIOVASCULAR: Regular rate and rhythm, with normal S1 and S2, no murmur or gallop or rub is heard. No carotid bruits auscultated. No JVD. Peripheral pulses easily palpable. RESPIRATORY: Breath sounds equal with inspiratory and expiratory wheezes noted throughout. Full and equal chest expansion without accessory muscle use or retractions. ABDOMEN: Bowel sounds are present. Abdomen is soft, nontender and nondistended. INTEGUMENTARY: No lesions or rash, normal skin turgor. LYMPH: No lymphadenopathy. Medical Decision & Procedures Medications Administered Medications (Trade) Dose Ordered Sig/Gerard Route Start Time Stop Time Status Last Admin Dose Admin Albuterol/ Ipratropium (Duoneb) 3 ml NOW STAT INH 02/06/18 20:56 02/06/18 20:58 DC 02/06/18 21:02 3 ML Hydrocodone Bit/ Homatropine Methylb (Hycodan Elix Homepack 5/1.5MG/ 5ML) 1 homepack UD ONCE PO 02/06/18 21:00 02/06/18 21:04 DC 02/06/18 21:02 1 [facility] ED Course The patient is seen and evaluated as above. She presents the emergency department for persistent diarrhea and cough after being diagnosed with influenza earlier this week. She had an outpatient chest x-ray yesterday which was negative, and C. difficile studies today which were negative. She is frustrated because she is not feeling better. I discussed with her at length the nature of the illness, and discussed that her symptoms could last her up to 2 weeks. The patient does not wish to pursue any additional testing here in the emergency department, she declines IV fluids and repeat blood work. She does have wheezing throughout and was given a DuoNeb treatment. Re- auscultation after the DuoNeb treatment showed fairly significant clearing of the wheezes. She has an albuterol inhaler and was issued a spacer to help facilitate proper use of the inhaler. She will be placed on prednisone to help with the wheezing and bronchospasm, and was given a prescription for Hycodan to use as needed for cough at nighttime. With regards to the diarrhea, again could be related to the viral illness, may have been exacerbated slightly by the few days of the antibiotic that she took. Her abdominal exam is benign. She does not wish to pursue any abdominal imaging. Continued supportive care measures were discussed. She was encouraged to use dhmq-bth-nkopxsz medications to help with her symptoms, and to follow-up with a primary care provider next week if symptoms are not improving. Patient was discharged home in stable condition. Differential diagnoses entertained included C. difficile colitis, infectious versus inflammatory colitis, medication side effect, bronchitis, pneumonia, COPD exacerbation, among others. Medical Decision See emergency department course. Medication Reconcilliation Current Medication List: was personally reviewed by sd Blood Pressure Screening Patient's blood pressure: Normal blood pressure Blood pressure disposition: Did not require urgent referral Impression Primary Impression: Cough Additional Impressions: Influenza Diarrhea Departure Information Prescriptions Hydrocodone W/ Homatropine (HYCODAN 5/1.5MG 5 ML) 1 Syp Syp 10 ML PO Q4H Y for Cough, #150 ML For Initial Treatment Prov: Nisa Rutledge PA 02/06/18 Prednisone (Prednisone) 50 Mg Tab 50 MG PO DAILY for 5 Days, #5 TAB Prov: Nisa Rutledge PA 02/06/18 Referrals Bernard Stover M.D. (PCP) Patient Instructions My [facility] Additional Instructions Albuterol Inhaler: Take 2 puffs via spacer every 3-4 hours for the next 5-7 days , then as needed for cough, wheezing or shortness of breath. Prednisone 50mg: Once daily until the prescription is finished. It is best to take this earlier in the day as some patients note occasional difficulty falling asleep when taken in the late evening. Ibuprofen(Motrin, Advil) may be used for fever or pain. Use 600mg every six hours as needed. Take with food. Avoid using more than 2400mg in a 24 hour period. Do not use 2400mg per day for more than three consecutive days without physician direction. Prolonged inappropriate use can lead to stomach upset or ulcers. This is available over the counter and typically comes in 200mg tablets. (AND/OR) Acetaminophen(Tylenol) may be used for fever or pain. Use 1000mg every eight hours as needed. Avoid using more than 3000mg in a 24 hour period. This is available over the counter. Hycodan cough syrup: use 5-10 mL's every six hours only as needed for severe cough. It is best for use at night since it will cause sedation. This is a narcotic medication. Avoid alcohol, operating machinery or dangerous equipment, working on ladders or roofs, DRIVING, important decision making, or situations where being under the influence may be dangerous. It is recommended to use an dbbe-gps-eicdoti stool softener such as Colace, 100mg twice daily while taking this medication to avoid constipation. Read all the package inserts or medication information paperwork provided. If you have any questions or concerns call your primary provider, pharmacist or the ER for assistance. Controlling your fever with Tylenol and Ibuprofen as above will make you feel better. Rest and drink plenty of fluids. Avoid strenuous activity until your symptoms resolve and your breathing returns to normal. Continue current medications. Return to the ER for chest pain, difficulty breathing, persistent fevers, vomiting, worsening of your condition, or as needed Follow-up with your primary care physician next week if your symptoms are not improving. Problem Qualifiers
[2018-02-06 22:15] VITALS: BP 113/81; PULSE 84; O2SAT 92
== END 2018-02-06 22:16 | disposition home or self-care (01) ==
LOC: C.EDB 20:19
DX: R05 Cough (principal); J10.1 Influenza due to other identified influenza virus with other respiratory manifestations; R19.7 Diarrhea, unspecified; F41.9 Anxiety disorder, unspecified; F17.200 Nicotine dependence, unspecified, uncomplicated; Z82.49 Family history of ischemic heart disease and other diseases of the circulatory system; Z84.1 Family history of disorders of kidney and ureter

== ENCOUNTER → 2018-02-06 | Outpatient (CLI) | payer OTHER | END | disposition home or self-care (01) | LOC: C.LAB 15:53 | PROVIDERS: ATTEND Internal Medicine | DX: R19.7 Diarrhea, unspecified (principal) ==

== ENCOUNTER → 2018-04-13 | Day surgery (SDC) | payer OTHER ==
[2018-04-02 09:47] VITALS: Ht 165.1 cm; Wt 54.1 kg
[2018-04-04 15:18] LABS: BASO % 0.6 %; BASO ABS # 0.04 K/uL (0-0.2); EOS ABS # 0.07 K/uL (0-0.5); HEMATOCRIT 42.8 % (37-47); IG# 0.02 K/uL (0.00-0.02); LYMPH % 27.7 %; LYMPH ABS # 2.01 K/uL (1.2-3.4); MEAN CELL VOLUME 89.7 fL (80-100); MEAN CORPUSCULAR HEMOGLOBIN 31.4 pg (25-34); MEAN PLATELET VOLUME 8.5 fL (7.4-10.4); MONO ABS # 0.51 K/uL (0.11-0.59); NEUT % 63.4 %; PLATELET COUNT 274 K/uL (130-400); RED CELL DISTRIBUTION WIDTH CV 14.5 % (11.5-14.5); RED CELL DISTRIBUTION WIDTH SD 47.6 fL (36.4-46.3); WHITE BLOOD COUNT 7.25 K/uL (4.8-10.8)
[2018-04-04 15:52] LABS: CALCIUM 8.8 mg/dl (8.5-10.1); CREATININE 0.84 mg/dl (0.60-1.20); POTASSIUM 3.9 mmol/L (3.5-5.1)
[~2018-04-13] VITALS: Ht 165.1 cm; Wt 54.1 kg
[~2018-04-13] MED LIST changes: +ATROPINE SULFATE 0.1 MG/ML 5ML SYR IV PRN; +CLINDAMYCIN PHOS 150 MG/ML 2 ML VIAL IV SCH; +DEXAMETHASONE SOD INJ 4 MG/ML VIAL ONE; -DIAZ-165 PO; +DIAZ5TAB PO; +EpHEDrine SULFATE INJ 50 MG/ML AMP IV PRN; +FENTANYL CITRATE INJ 50 MCG/1 ML 2 ML VIAL ONE; +FLUMAZENIL 0.1 MG/1 ML 10 ML VIAL IV PRN; +HYDROmorphone INJ 0.5 MG/0.5 ML SYR ONE; +HYDROmorphone INJ 1 MG/ML SYR IV PRN; +HYDROmorphone INJ 2 MG/ML SYR/VIAL ONE; +KETOROLAC TROMETHAMINE 30 MG/ML VIAL IV STA; +KETOROLAC TROMETHAMINE 30 MG/ML VIAL ONE; +LABETALOL HCL IV 5 MG/ML 20ML IV PRN; +LACTATED RINGER'S 1000ML 1,000 ML IV SCH; +LIDOCAINE HCL 2% 2 ML VIAL (20MG/ML) ONE; +METOCLOPRAMIDE HCL INJ 5 MG/ML 2 ML VIAL IV PRN; +METOPROLOL TARTRATE 1 MG/ML VIAL ONE; +MIDAZOLAM HCL 1 MG/ML 2ML VIAL ONE; +MoRPHine SULFATE 2 MG/ML CARP IV PRN; +MoRPHine SULFATE 4 MG/ML 1 ML CARP\\VIAL IV PRN; +NALOXONE HCL 0.4 MG/1 ML VIAL/CARP IV PRN; +ONDANSETRON INJ 2 MG/ML 2 ML VIAL IV PRN; +ONDANSETRON INJ 2 MG/ML 2 ML VIAL ONE; +OXYCODONE/ACETAMINOPHEN 5-325 TAB PO PRN; +PROMETHAZINE HCL INJ 12.5 MG in SODIUM CHLORIDE 0.9% 50ML 50 ML IV PRN; +PROPOFOL IV EMULSION 10 MG/ML 20 ML VIAL ONE; +ROPIVACAINE 0.5% 5 MG/ML 30 ML VIAL ONE; +SODIUM CHLORIDE 0.9% 1000ML 1,000 ML IV SCH; +SODIUM CHLORIDE 0.9% INJ 10 ML VIAL ONE
--- NOTE | 2018-04-13 09:07 | History & Physical Bridge - SC ---
H&P Re-Evaluation Bridge Note: I have examined the patient, reviewed the History & Physical and in the interval since the performance of the History & Physical I have noted the following changes of clinical significance: No changes noted
--- NOTE | 2018-04-13 12:17 | [facility] Post Operative Brief Note ---
Immediate Operative Summary Operative Date April 13, 2018. Pre-Operative Diagnosis LEFT ANKLE TARSAL TUNNEL SYNDROME Post-Operative Diagnosis Same Procedure(s) Performed Left Tarsal Tunnel Open Release Surgeon Dr. Goetz [employer] Surgeon(s) Adolfo Sheikh PA-C Estimated Blood Loss 5 cc Findings Consistent with Post-Op Diagnosis Fluids (cc crystalloids) 600 cc Specimens None Drains None Anesthesia Type General Complication(s) none Disposition Accompanied Pt To Recover: no Disposition: Recovery Room / PACU
--- NOTE | 2018-04-13 12:30 | [facility] Operative Report ---
Operative Report Operative Date April 13, 2018. Pre-Operative Diagnosis LEFT ANKLE TARSAL TUNNEL SYNDROME Post-Operative Diagnosis Same Procedure(s) Performed Left Tarsal Tunnel Open Release Surgeon Dr. Goetz Steam Shovelman Surgeon(s) Adolfo Sheikh PA-C Estimated Blood Loss 5 cc Fluids 600 cc Specimens None Drains None Anesthesia Type General Complication(s) none Disposition no Recovery Room / PACU Description of Procedure I was present during entire procedure and assisted with wound closure. Please see Dr. Goetz procedure note for specifics. I attest to the content of the Intraoperative Record and any orders documented therein. Any exceptions are noted below.
--- NOTE | 2018-04-13 12:35 | Discharge Instructions ---
Discharge Instructions Date of Service April 13, 2018. Admission Reason for Admission: Left Ankle Tarsal Tunnel Syndrome Discharge Discharge Diagnosis / Problem: Left ankle tarsal tunnel syndrome Discharge Goals Goal(s): Decrease discomfort, Improve function, Increase independence Activity Recommendations Activity Limitations: as noted below Lifting Limitations: none Exercise/Sports Limitations: until after follow-up appointment May Resume Sexual Activity: when tolerated Shower/Bathe: tomorrow, keep incision dry Driving or Machine Use: No driving until cleared by waste management specialist Weightbearing Status: Left non-weightbearing (with splint in place and with aide of crutches) . Instructions / Follow-Up Instructions / Follow-Up Post-operative Instructions Dear Patient and Family/Friends, Before you are discharged from the hospital, it is important to know what to expect when you get home after surgery. To that end, we have created this sheet of discharge instructions which covers many commonly asked questions. Make sure you go through this sheet in its entirety with your nurse before you are discharged. Please note that we will go over the specifics of your surgery and recovery when you return for your first post-operative visit. Sincerely, Dr. Goetz Pain Expect to be in a fair amount of pain after surgery. Remember, our goal is not to eliminate your pain, but to make it tolerable. It is a good idea to stay ahead of your pain by taking the medications you were prescribed once you get home. Typically, the pain starts improving 3-7 days after surgery. You should start weaning off the narcotic pain medication (oxycodone, hydrocodone, hydromorphone, morphine) as soon as your pain improves. Please call our office if your pain is not adequately controlled. Ice Ice your operative site at least 5 times a day for 15-30 minutes at a time. Make sure you have a thin cloth between the ice or cooling unit and your skin to prevent shine bite. This is especially important if you received a nerve block. Continue icing your operative site for the first 5-7 days after surgery , then as needed. Diet/Nausea/Vomiting Start by drinking clear liquids and eating crackers. If you can tolerate this, then you may resume your normal diet. If you feel nauseated or vomit, take Zofran/ondansetron (if prescribed). Please call our office if you have intractable nausea or vomiting, or, if after hours, you may go to the Emergency Room for help. Constipation Constipation is a common side effect of narcotic pain medication. If you have not had a bowel movement within 2 days after surgery, we recommend purchasing an over the counter laxative such as Milk of Magnesia, Dulcolax, or Miralax from a local pharmacy, and taking it as instructed. Call our clinic if any questions. Splint Keep you splint in place until we see you for your post operative follow up. Weight bearing and Range of Motion. Do not bear any weight through your operative extremity immediately after surgery. If you had upper extremity surgery, do not lift anything with that arm. If you are in a knee brace, keep it locked in place until your follow-up. We will discuss your weight bearing, range of motion, and lifting restrictions in detail at your first post-operative appointment. Continuous Passive Motion (CPM) Machine If you were prescribed a CPM machine, it will start after your first post- operative appointment, at which time we will give you instructions on the range of motion settings and duration of treatment Physical therapy You will be given a prescription for physical therapy or occupational therapy at your first post-operative appointment. Typically, patients start therapy within 1 week of surgery Wound care and showering We will inspect your wound at your first post-operative visit, and may do a dressing change at that time. Most patients will be in a water-proof dressing that is removed 14 days after surgery. It is normal to see some dried blood on the dressing. Do not remove your dressing, paper strips or sutures yourself unless you are given permission. Showering is allowed the day after surgery. Do not scrub or remove any dressings. The wound should not be submerged underwater (i.e. in a bathtub or pool) until 4 weeks after surgery MARY stockings If you were given white stockings, these are to be worn at all times except to shower (on both legs) for the first 2 weeks after surgery. Driving You may not drive while taking narcotic pain medication or while in a cast, splint, sling or brace. You, the patient, need to make the final determination about when you are safe to drive, however, the earliest you may consider driving after surgery is below: Hand/Wrist/Elbow Surgery: 3 days Shoulder Surgery: 2 weeks Hip,/Knee/Ankle Surgery: 4 weeks Fracture repair: 6 weeks Return to Work Your return to work depends on what surgery was done and what type of work you do. Please bring any paperwork your employer needs completed to your first post -operative visit. Also, bring a description of your job duties, as this helps us to understand what risks you may face at work. Travel Avoid long distance travel (greater than 1 hour) in airplanes and cars for the first 6 weeks after surgery. If you must travel, you need to have a Doppler ultrasound done before you travel to rule out a blood clot in your legs. Follow-up You should have a follow-up appointment already scheduled 1-2 days after surgery. If not, please contact our office to make this appointment before you leave the hospital. When to call the office It is normal to have swelling and bruising in the limb that was operated on. This will improve with time. It is also normal to have fevers for the first 2 days after surgery. Reasons you should call your doctor include: Uncontrolled pain; Nausea, vomiting, or constipation that does not improve with medication; Fevers over 101.5, chills, sweats; Drainage or bleeding from the wound; Foul odor; Spreading areas of redness; Any other concerns Current Hospital Diet Patient's current hospital diet: Discharge Diet Recommended Diet: Regular Diet Procedures Procedures Performed: Left Tarsal Tunnel Open Release Pending Studies Studies pending at discharge: no Medical Emergencies . Who to Call and When: Medical Emergencies: If at any time you feel your situation is an emergency, please call 911 immediately. . Non-Emergent Contact Non-Emergency issues call your: Primary Care Provider Call Non-Emergent contact if: you have a fever, temperature is above 101.5, your pain is not controlled, your pain is worsening, wound has increased drainage, you have any medication questions . "Provider Documentation" section prepared by Bernard Sheikh. . [place] Drug Monitoring Program Search Results: patient reviewed within database, no issues identified, see additional documentation
[2018-04-13 14:37] VITALS: BP 109/73; PULSE 95; O2SAT 95
--- NOTE | 2018-04-13 14:47 | Anesthesia Progress Nt - [facility] ---
Anesthesia Post Op Note Date & Time April 13, 2018 at 14:47 Vital Signs Pain Intensity: 2 Vital Signs Past 12 Hours Date Time Temp Pulse Resp B/P (MAP) Pulse Ox O2 Delivery O2 Flow Rate FiO2 04/13/18 14:37 95 16 109/73 (85) 95 Room Air 04/13/18 14:10 37.1 88 16 106/71 (83) 94 Room Air 04/13/18 14:06 108/67 04/13/18 14:04 88 13 04/13/18 14:04 87 13 98 04/13/18 14:03 36.6 90 16 108/67 95 Room Air 04/13/18 14:01 121/72 04/13/18 13:59 94 20 97 04/13/18 13:59 94 20 04/13/18 13:55 114/75 04/13/18 13:54 90 17 04/13/18 13:54 90 17 96 04/13/18 13:50 107/66 04/13/18 13:49 89 17 97 04/13/18 13:49 90 17 04/13/18 13:45 103/68 04/13/18 13:44 89 15 04/13/18 13:44 88 15 98 04/13/18 13:40 105/66 04/13/18 13:39 87 17 98 04/13/18 13:39 87 17 04/13/18 13:35 108/72 04/13/18 13:34 88 14 99 04/13/18 13:34 88 14 04/13/18 13:30 106/72 04/13/18 13:29 85 16 100 04/13/18 13:29 85 16 04/13/18 13:25 107/64 04/13/18 13:24 86 19 04/13/18 13:24 86 19 97 04/13/18 13:20 101/68 04/13/18 13:19 85 15 97 04/13/18 13:19 84 15 04/13/18 13:15 106/70 04/13/18 13:14 85 19 99 04/13/18 13:14 85 19 04/13/18 13:10 104/61 04/13/18 13:09 85 14 99 04/13/18 13:09 84 14 04/13/18 13:05 107/67 04/13/18 13:04 85 18 98 04/13/18 13:04 85 18 04/13/18 13:00 100/67 04/13/18 12:59 84 17 98 04/13/18 12:59 84 17 04/13/18 12:55 100/68 04/13/18 12:54 86 16 97 04/13/18 12:54 86 16 04/13/18 12:50 102/62 04/13/18 12:49 85 18 04/13/18 12:49 85 18 97 04/13/18 12:45 95/60 04/13/18 12:44 83 16 98 04/13/18 12:44 83 16 04/13/18 12:40 100/62 04/13/18 12:39 83 12 04/13/18 12:39 83 12 96 04/13/18 12:35 103/70 04/13/18 12:34 82 15 04/13/18 12:34 82 15 97 04/13/18 12:30 116/72 04/13/18 12:29 36.6 86 18 110/77 98 Mask 4 04/13/18 12:29 87 04/13/18 12:29 87 98 04/13/18 09:06 36.6 91 22 125/63 (83) 96 Room Air Notes Mental Status: alert / awake / arousable, participated in evaluation Pt Amnestic to Procedure: Yes Nausea / Vomiting: adequately controlled Pain: adequately controlled Airway Patency, RR, SpO2: stable & adequate BP & HR: stable & adequate Hydration State: stable & adequate Anesthetic Complications: no major complications apparent
--- NOTE | 2018-04-13 15:06 | OPERATIVE REPORT ---
DATE OF OPERATION: 04/13/2018 PREOPERATIVE DIAGNOSIS: Left tarsal tunnel syndrome. POSTOPERATIVE DIAGNOSIS: Same. PROCEDURE: Left tarsal tunnel release. SURGEON: Beto Goetz MD LIVE IN CAREGIVER: Adolfo Sheikh. ESTIMATED BLOOD LOSS: 5 mL. IV FLUIDS: 600 mL crystalloid. SPECIMENS: None. COMPLICATIONS: None. IMPLANTS: None. INDICATIONS: Ms. Ricketts is a 53-year-old female who is status post a right tarsal tunnel release by my partner Dr. Bourne back in the fall of 2016. She has had a good result from this surgery. She has EMG and nerve conduction study confirmed tarsal tunnel syndrome on the left ankle. This has been refractory to conservative management. Physical exam is consistent with a Tinel sign over the tarsal tunnel. I had a long discussion with her about the risks and benefits of surgery, alternatives to surgery, and expected outcomes. After reviewing all these, she elected to proceed with surgery. All questions were answered. Informed consent was signed. DESCRIPTION OF PROCEDURE: The patient was identified in the preoperative holding area where her surgical site was marked. She was brought back to the main operating room where she was placed on the operating room table, and general anesthesia was administered. All bony prominences were padded. Perioperative antibiotics were administered. She was prepped and draped in the normal sterile fashion. Prior to incision, a multidisciplinary timeout was called. All in the room were in agreement. We began by palpating the posterior tibial artery at the ankle. Incision was made just posterior to this approximately midway between the Achilles and the medial malleolus. Total length of the incision was approximately 8 cm. Limb was then exsanguinated with an Esmarch bandage. Tourniquet was inflated to 250 mmHg. Total tourniquet time for the case was 11 minutes. Incision was then made over the marked out area. We dissected down to subcutaneous tissues to the level of the fascia. Bipolar cautery was used to ensure meticulous hemostasis throughout the case. The laciniate ligament was then incised directly overlying the posterior tibial nerve. This incision through the fascia was carried up to the level of approximately 8 cm above the tip of the medial malleolus. We then followed the nerve distally. The fascia overlying the abductor hallucis muscle was incised. The muscle was then retracted distally. The deep fascia was then incised adjacent to the tarsal tunnel so that the tarsal tunnel was completely free, and a [place] as well as my pinky finger could be placed down to the tarsal tunnel without any excessive pressure on the nerve. The ankle was then brought through a full range of motion. There was no subluxation of the nerve or any further impingement. I then let the tourniquet down and irrigated the wound out. Any remaining small bleeders were cauterized. The deep dermis was then closed with inverted 3-0 Vicryls. 3-0 nylons were used in horizontal mattress fashion for the skin. She was then placed into a posterior and U-slab plaster splint. She was awakened from anesthesia and transferred to the recovery room in stable condition. POSTOPERATIVE COURSE: The patient will be nonweightbearing for the next 2 weeks in her splint. She will then be allowed out of the splint for a wound check. Assuming her wound is intact, she can then be allowed to start weightbearing in normal shoe wear. She will be on aspirin for DVT prophylaxis. I attest to the content of the Intraoperative Record and any orders documented therein. Any exception s are noted below.
== END | disposition home or self-care (01) ==
LOC: X.SURG 08:49
PROVIDERS: ATTEND Orthopaedic Surgery
DX: G57.52 Tarsal tunnel syndrome, left lower limb (principal); E78.5 Hyperlipidemia, unspecified; K21.9 Gastro-esophageal reflux disease without esophagitis; F17.200 Nicotine dependence, unspecified, uncomplicated

== ENCOUNTER → 2018-07-10 | Outpatient (CLI) | payer OTHER ==
[~2018-07-10] MED LIST changes: -ATROPINE SULFATE 0.1 MG/ML 5ML SYR IV PRN; -CLINDAMYCIN PHOS 150 MG/ML 2 ML VIAL IV SCH; -DEXAMETHASONE SOD INJ 4 MG/ML VIAL ONE; -EpHEDrine SULFATE INJ 50 MG/ML AMP IV PRN; -FENTANYL CITRATE INJ 50 MCG/1 ML 2 ML VIAL ONE; -FLUMAZENIL 0.1 MG/1 ML 10 ML VIAL IV PRN; -HYDROmorphone INJ 0.5 MG/0.5 ML SYR ONE; -HYDROmorphone INJ 1 MG/ML SYR IV PRN; -HYDROmorphone INJ 2 MG/ML SYR/VIAL ONE; -KETOROLAC TROMETHAMINE 30 MG/ML VIAL IV STA; -KETOROLAC TROMETHAMINE 30 MG/ML VIAL ONE; -LABETALOL HCL IV 5 MG/ML 20ML IV PRN; -LACTATED RINGER'S 1000ML 1,000 ML IV SCH; -LIDOCAINE HCL 2% 2 ML VIAL (20MG/ML) ONE; -METOCLOPRAMIDE HCL INJ 5 MG/ML 2 ML VIAL IV PRN; -METOPROLOL TARTRATE 1 MG/ML VIAL ONE; -MIDAZOLAM HCL 1 MG/ML 2ML VIAL ONE; -MoRPHine SULFATE 2 MG/ML CARP IV PRN; -MoRPHine SULFATE 4 MG/ML 1 ML CARP\\VIAL IV PRN; -NALOXONE HCL 0.4 MG/1 ML VIAL/CARP IV PRN; -ONDANSETRON INJ 2 MG/ML 2 ML VIAL IV PRN; -ONDANSETRON INJ 2 MG/ML 2 ML VIAL ONE; -OXYCODONE/ACETAMINOPHEN 5-325 TAB PO PRN; -PROMETHAZINE HCL INJ 12.5 MG in SODIUM CHLORIDE 0.9% 50ML 50 ML IV PRN; -PROPOFOL IV EMULSION 10 MG/ML 20 ML VIAL ONE; -ROPIVACAINE 0.5% 5 MG/ML 30 ML VIAL ONE; -SODIUM CHLORIDE 0.9% 1000ML 1,000 ML IV SCH; -SODIUM CHLORIDE 0.9% INJ 10 ML VIAL ONE
[2018-07-10 14:37] LABS: HEMATOCRIT 43.1 % (37-47); HEMOGLOBIN 15.1 g/dL (12.0-16.0); MEAN CELL VOLUME 89.6 fL (80-100); MEAN CORPUSCULAR HEMOGLOBIN 31.4 pg (25-34); MEAN PLATELET VOLUME 8.7 fL (7.4-10.4); PLATELET COUNT 292 K/uL (130-400); RED CELL DISTRIBUTION WIDTH CV 13.3 % (11.5-14.5); WHITE BLOOD COUNT 8.57 K/uL (4.8-10.8)
[2018-07-10 15:07] LABS: ALBUMIN 3.7 gm/dl (3.4-5.0); ALKALINE PHOSPHATASE 82 U/L (45-117); ALT/SGPT 25 U/L (12-78); AST/SGOT 21 U/L (15-37); BLOOD UREA NITROGEN 15 mg/dl (7-18); CALCIUM 8.6 mg/dl (8.5-10.1); CARBON DIOXIDE 26 mmol/L (21-32); CHOLESTEROL 245 mg/dl (0-200); CREATININE 0.86 mg/dl (0.60-1.20); GLUCOSE 86 mg/dl (70-99); LDL CHOLESTEROL CALCULATED 148 mg/dl; POTASSIUM 4.2 mmol/L (3.5-5.1); SODIUM 138 mmol/L (136-145)
== END | disposition home or self-care (01) ==
LOC: C.LAB 13:41
PROVIDERS: ATTEND Nurse Practitioner
DX: Z01.818 Encounter for other preprocedural examination (principal); G57.52 Tarsal tunnel syndrome, left lower limb; E78.5 Hyperlipidemia, unspecified